=== PATIENT | female | born 1935 | race Caucasian/White ===

== ENCOUNTER 2016-04-15 11:59 | Emergency (ER) | payer OTHER ==
[~2016-04-15] VITALS: Ht 152.4 cm; Wt 49.0 kg
[2016-04-15 12:08] VITALS: PULSE 60; RESP 20; TEMP 97; O2SAT 97
[2016-04-15] MEDS ORDERED: NACL 0.9% 1,000 ML IV ONE (12:22)
[2016-04-15] MEDS ORDERED: ONDANSETRON HCL 4 MG/2 ML VIAL IVP ONE (12:30)
[2016-04-15] MEDS ORDERED: DEXAMETHASONE SOD PHOSPHATE 10 MG/ML VIAL IVP ONE (12:30)
[2016-04-15] MEDS ORDERED: PROCHLORPERAZINE EDISYLATE 10 MG/2 ML VIAL IVP ONE (12:30)
[2016-04-15] MEDS ORDERED: KETOROLAC TROMETHAMINE 30 MG VIAL IVP ONE (12:30)
--- NOTE | 2016-04-15 12:38 | NUR ---
# 20 gauge angiocath placed to RAC. Use of asceptic technique. Opsite placed over site. Blood return noted. Blood for lab drawn from site. Flushed with 10 cc of normal saline. No evidence of infiltration noted. Patient tolerated well.
[2016-04-15] MEDS ORDERED: hydrALAZINE HCL 20 MG/ML VIAL IVP ONE (12:45)
--- NOTE | 2016-04-15 12:45 | NUR ---
Dr Canales at bedside examining patient
[2016-04-15 13:04] LABS: ANION GAP 9 (5-15); CALCIUM 9.7 mg/dL (8.4-11.0); CHLORIDE 101 mmol/L (98-107); CREATININE 0.91 mg/dL (0.55-1.30); GLUCOSE 129 mg/dL (70-99); POTASSIUM 3.5 mmol/L (3.5-5.1); SODIUM SERUM 138 mmol/L (136-145); UREA NITROGEN, BLOOD 16 mg/dL (8-21)
--- NOTE | 2016-04-15 13:04 | NUR ---
report given to yelena NOLASCO
--- NOTE | 2016-04-15 13:05 | NUR ---
Pt brought by daughter, A&Ox4, pt c/o N/V and diarrhea since last night, denies chest pain , VS WNL, skin pink and warm, cap refill <3, pt ambulatory, respirations even and unlabored, denies bleeding.
[2016-04-15 13:06] LABS: BASOPHILS # (AUTO) 0.1 K/uL (0.0-0.2); BASOPHILS % (AUTO) 1.2 % (0.0-2.0); EOSINOPHILS % (AUTO) 0.1 % (0.0-4.0); HEMATOCRIT 39.3 % (36-48); HEMOGLOBIN 13.3 g/dL (12.0-16.0); LYMPHOCYTES # (AUTO) 1.2 K/uL (1.0-5.5); LYMPHOCYTES % (AUTO) 13.9 % (20.5-51.5); MEAN CORPUSCULAR HEMOGLOBIN 31 pg (27-31); MEAN CORPUSCULAR HGB CONC 34 % (32-36); MEAN CORPUSCULAR VOLUME 92 fL (79.0-98.0); MONOCYTES # (AUTO) 0.3 K/uL (0.0-1.0); MONOCYTES % (AUTO) 3.3 % (1.7-9.3); NEUTROPHILS # (AUTO) 7.2 K/uL (1.8-7.7); NEUTROPHILS % (AUTO) 81.5 % (40.0-70.0); PLATELET COUNT (AUTO) 296 K/uL (130-430); RED BLOOD CELL COUNT(AUTO) 4.27 MIL/uL (4.2-6.2); RED CELL DISTRIBUTION WIDTH 13.2 % (9.0-15.0); WHITE BLOOD COUNT (AUTO) 8.8 K/uL (4.8-10.8)
[2016-04-15 13:09] LABS: ALANINE AMINOTRANSFERASE 60 U/L (12-78); ALBUMIN 4.3 g/dL (3.4-4.8); AMYLASE 43 U/L (0-100); ASPARTATE AMINOTRANSFERASE 40 U/L (10-37); LIPASE 130 U/L (73-393); TOTAL BILIRUBIN 0.7 mg/dL (0.0-1.0); TOTAL PROTEIN, SERUM 7.9 g/dL (6.4-8.3)
--- NOTE | 2016-04-15 14:19 | NUR ---
Pt on stable condition, states she feels better at this time, respirations even and unlabored, no vomiting noted at this time.
[2016-04-15 14:32] LABS: BILIRUBIN,URINE NEGATIVE (NEGATIVE); CLARITY/URINE HAZY (CLEAR); COLOR,URINE YELLOW (YELLOW); GLUCOSE,URINE NEGATIVE (NEGATIVE); KETONES,URINE 1+ (NEGATIVE); LEUKOCYTE ESTERASE ,URINE NEGATIVE (NEGATIVE); NITRITE, URINE NEGATIVE (NEGATIVE); PROTEIN URINE 2+ (NEGATIVE); UROBILINOGEN,URINE 0.2 (0.2-1.0)
[2016-04-15 14:38] LABS: BLOOD, URINE TRACE (NEGATIVE)
[2016-04-15] MEDS ORDERED: TOPXL100 PO (14:58)
[2016-04-15] MEDS ORDERED: DONE5TAB33 PO (14:58)
[2016-04-15] MEDS ORDERED: ATOR10TA68 PO (14:58)
[2016-04-15] MEDS ORDERED: LOSA1TAB9 PO (14:58)
[2016-04-15] MEDS ORDERED: CALC-226 PO (14:58)
[2016-04-15 14:59] LABS: BACTERIA,URINE FEW /HPF (None Seen); COARSE GRANULAR CASTS,URINE 0-1 /LPF (None Seen); FINE GRANULAR CASTS,URINE 0-2 /LPF (None Seen); URINE AMORPHOUS URATE 2+ /HPF (None Seen); WBC,URINE 0-3 /HPF (0-3)
[2016-04-15 15:00] LABS: MUCUS,URINE 2+ /LPF (None Seen)
--- NOTE | 2016-04-15 15:56 | NUR ---
Patient given written and verbal discharge instructions and verbalizes understanding. ER MD discussed with patient the results and treatment provided. Given copies of tests performed in ER. Patient in stable condition. ID arm band removed. IV catheter removed intact and dressing applied, no active bleeding. Rx of Zofran given. Patient educated on pain management and to follow up with PMD. Pain Scale 0/10 . Opportunity for questions provided and answered.
[2016-04-15 15:57] VITALS: BP 142/67; PULSE 73; RESP 20; TEMP 97; O2SAT 98
== END 2016-04-15 15:56 | disposition home or self-care (01) ==
LOC: SED 11:59
DX: K52.9 Noninfective gastroenteritis and colitis, unspecified (principal); R03.0 Elevated blood-pressure reading, without diagnosis of hypertension; F41.9 Anxiety disorder, unspecified; E78.00 Pure hypercholesterolemia, unspecified
CPT/HCPCS: 36415; 74176; 80053; 81000; 82150; 83690; 85025; 96361; 96374; 96375; 99285; J0360; J0780; J1100; J1885; J2405; J7030

== ENCOUNTER 2019-09-09 20:37 | Emergency (ER) | payer OTHER ==
[~2019-09-09] VITALS: Ht 121.9 cm; Wt 47.2 kg
[2019-09-09 20:37] VITALS: BP_SYST 142
[~2019-09-09 20:37] MED LIST: ATOR10TA68 PO; CALC-823 PO; DONE5TAB33 PO; LOSA1TAB9 PO; TOPXL100 PO
--- NOTE | 2019-09-09 23:40 | NUR ---
ER at bedside examining patient.
--- NOTE | 2019-09-09 23:40 | NUR ---
Patient to ER bed 02 to gown for evaluation. Side rails up. Report given to CONSTANCE Jimenez.
[2019-09-10] MEDS ORDERED: DIPH-TET-PERTUS Vaccine 0.5 ML VIAL (ADACEL) I.M. ONE
[2019-09-10] MEDS ORDERED: LIDOCAINE 1%, 20 ML MDV 20 ML ONE (00:05)
--- NOTE | 2019-09-10 00:12 | NUR ---
DR. BRITTON AT BEDSIDE SUTURING PT. PT IS ALERT AND ORIENTED. ABLE TO COMMUNICATE NEEDS. RIGHT ARM LACERATION BLEEDING CONTROLLED.
--- NOTE | 2019-09-10 00:37 | NUR ---
PT IN [place] AND DENIES SEVERE PAIN. MEDICATED WITH TDAP VACCINE, INFORMATION SHEET GIVEN.
[2019-09-10] MEDS ORDERED: BACITRACIN ZINC 15 GM TOPICAL OINTMENT TP ONE (01:15)
[2019-09-10] MEDS ORDERED: cefTRIAXone 1 GM in LIDOCAINE 1%, 20 ML MDV 2.1 ML IM ONE (01:15)
[2019-09-10] MEDS ORDERED: BACITRACIN 1 GM OINT TP ONE (01:45)
--- NOTE | 2019-09-10 01:55 | NUR ---
WOUND DRESSING AFTER BACITRACIN APPLIED.
--- NOTE | 2019-09-10 02:48 | NUR ---
Patient given written and verbal discharge instructions and verbalizes understanding. ER MD discussed with patient the results and treatment provided. Patient in stable condition. ID arm band DC'D Rx of KEFLEX given. Patient educated on pain management and to follow up with PMD. Pain Scale 0/10. Opportunity for questions provided and answered. Medication side effect fact sheet provided.
[2019-09-10 02:52] VITALS: BP_SYST 142
== END 2019-09-10 02:48 | disposition home or self-care (01) ==
LOC: SED 20:37
DX: S51.811A Laceration without foreign body of right forearm, initial encounter (principal); F41.9 Anxiety disorder, unspecified; E78.00 Pure hypercholesterolemia, unspecified; Z79.899 Other long term (current) drug therapy; W18.49XA Other slipping, tripping and stumbling without falling, initial encounter; Y93.89 Activity, other specified; Y92.096 Garden or yard of other non-institutional residence as the place of occurrence of the external cause; Y99.8 Other external cause status
CPT/HCPCS: 12004; 73090; 90471; 90715; 96372; 99284; J0696; J2001

== ENCOUNTER 2022-08-23 21:08 | Emergency (ER) | payer OTHER ==
[~2022-08-23] VITALS: Ht 154.9 cm; Wt 54.4 kg
[2022-08-23 21:08] VITALS: BP_SYST 116
[~2022-08-23 21:08] MED LIST changes: +PRO40 PO; +SER25 PO
--- NOTE | 2022-08-23 21:08 | NUR ---
Patient triaged and placed back to the [facility]. Vital signs updated, denied any acute distress at this time. Instructed to notify ED staff for any changes in condition or worsening of symptoms. Patient verbalized understanding.
--- NOTE | 2022-08-23 21:48 | NUR ---
Placed in room 03. Placed on monitoring tech, blood pressure machine and pulse oximeter. To gown for exam. Side rails up. Report given to CONSTANCE STOKES
--- NOTE | 2022-08-23 22:08 | NUR ---
FIRST CONTACT WITH PT. ASSESSMENT COMPLETED. MD ALSO AT BEDSIDE FOR EVALUATION AND ORDERS.
--- NOTE | 2022-08-23 22:16 | NUR ---
ER Dr. CHAVARRIA at bedside examining patient.
[2022-08-23 22:51] LABS: BASOPHILS # (AUTO) 0.1 K/uL (0.0-0.2); BASOPHILS % (AUTO) 0.5 % (0.0-2.0); EOSINOPHILS # (AUTO) 0.2 K/uL (0.0-0.4); EOSINOPHILS % (AUTO) 1.2 % (0.0-4.0); HEMATOCRIT 29.8 % (36-48); HEMOGLOBIN 9.9 g/dL (12.0-16.0); LYMPHOCYTES # (AUTO) 2.4 K/uL (1.0-5.5); LYMPHOCYTES % (AUTO) 17.9 % (20.5-51.5); MEAN CORPUSCULAR HEMOGLOBIN 31 pg (27-31); MEAN CORPUSCULAR HGB CONC 33 % (32-36); MEAN CORPUSCULAR VOLUME 94 fL (79.0-98.0); MONOCYTES # (AUTO) 1.1 K/uL (0.0-1.0); MONOCYTES % (AUTO) 8.5 % (1.7-9.3); NEUTROPHILS # (AUTO) 9.7 K/uL (1.8-7.7); NEUTROPHILS % (AUTO) 71.9 % (40.0-70.0); PLATELET COUNT (AUTO) 298 K/uL (130-430); RED BLOOD CELL COUNT(AUTO) 3.18 MIL/uL (4.2-6.2); RED CELL DISTRIBUTION WIDTH 14.2 % (9.0-15.0); WHITE BLOOD COUNT (AUTO) 13.5 K/uL (4.8-10.8)
[2022-08-23 23:12] LABS: ANION GAP 7 (5-15); CALCIUM 8.6 mg/dL (8.4-11.0); CHLORIDE 100 mmol/L (98-107); CREATININE 1.65 mg/dL (0.55-1.30); GLUCOSE 115 mg/dL (70-99); UREA NITROGEN, BLOOD 35 mg/dL (8-21)
[2022-08-23 23:19] LABS: ALANINE AMINOTRANSFERASE 16 U/L (12-78); ALBUMIN 3.3 g/dL (3.4-4.8); ASPARTATE AMINOTRANSFERASE 15 U/L (10-37); TOTAL BILIRUBIN 0.2 mg/dL (0.0-1.0)
--- NOTE | 2022-08-24 00:05 | NUR ---
PT RESTING QUIETLY WITH NO SIGNS OF DISTRESS.
--- NOTE | 2022-08-24 02:00 | NUR ---
PT ASLEEP. NO SIGNS OF DISTRESS.
--- NOTE | 2022-08-24 04:10 | NUR ---
REPORT CALLED TO CONSTANCE GONCALVES AT FACILITY. EMT ALSO AT BEDSIDE FOR REPORT.
[2022-08-24 04:29] VITALS: BP_SYST 112
--- NOTE | 2022-08-24 04:35 | NUR ---
Patient given written and verbal discharge instructions and verbalizes understanding. ER MD CHAVARRIA discussed with patient the results and treatment provided. Patient in stable condition. ID arm band removed. IV catheter removed intact and dressing applied, no active bleeding. Rx of NONE given. Patient educated on pain management and to follow up with PMD. Pain Scale . Opportunity for questions provided and answered. Medication side effect fact sheet provided.
== END 2022-08-24 04:29 | disposition home or self-care (01) ==
LOC: SED 21:08
DX: S09.90XA Unspecified injury of head, initial encounter (principal); E78.00 Pure hypercholesterolemia, unspecified; Z79.899 Other long term (current) drug therapy; W19.XXXA Unspecified fall, initial encounter; Y93.89 Activity, other specified; Y92.89 Other specified places as the place of occurrence of the external cause; Y99.8 Other external cause status
CPT/HCPCS: 36415; 70450-TC; 72125-TC; 76376; 80053; 84484; 85025; 93005; 99284

== ENCOUNTER 2022-09-17 20:02 | Emergency (ER) | payer OTHER ==
[~2022-09-17] VITALS: Ht 160 cm; Wt 54.4 kg
[2022-09-17 20:09] VITALS: BP_SYST 108; PULSE 58; RESP 19; TEMP 98.9; O2SAT 97
[2022-09-17] MEDS ORDERED: NACL 0.9% 1,000 ML IV ONE (20:15)
[2022-09-17 20:47] LABS: BASOPHILS # (AUTO) 0.1 K/uL (0.0-0.2); BASOPHILS % (AUTO) 0.7 % (0.0-2.0); EOSINOPHILS # (AUTO) 0.1 K/uL (0.0-0.4); EOSINOPHILS % (AUTO) 1.2 % (0.0-4.0); HEMATOCRIT 25.6 % (36-48); HEMOGLOBIN 8.3 g/dL (12.0-16.0); LYMPHOCYTES # (AUTO) 2.2 K/uL (1.0-5.5); LYMPHOCYTES % (AUTO) 26.8 % (20.5-51.5); MEAN CORPUSCULAR HEMOGLOBIN 30 pg (27-31); MEAN CORPUSCULAR HGB CONC 32 % (32-36); MEAN CORPUSCULAR VOLUME 94 fL (79.0-98.0); MONOCYTES # (AUTO) 0.8 K/uL (0.0-1.0); MONOCYTES % (AUTO) 10.2 % (1.7-9.3); NEUTROPHILS # (AUTO) 4.9 K/uL (1.8-7.7); NEUTROPHILS % (AUTO) 61.1 % (40.0-70.0); PLATELET COUNT (AUTO) 269 K/uL (130-430); RED BLOOD CELL COUNT(AUTO) 2.72 MIL/uL (4.2-6.2)
[2022-09-17 20:55] LABS: ALANINE AMINOTRANSFERASE 22 U/L (12-78); ALBUMIN 3.2 g/dL (3.4-4.8); ANION GAP 8 (5-15); ASPARTATE AMINOTRANSFERASE 24 U/L (10-37); CALCIUM 8.2 mg/dL (8.4-11.0); CHLORIDE 105 mmol/L (98-107); GLUCOSE 122 mg/dL (74-106); TOTAL BILIRUBIN 0.2 mg/dL (0.0-1.0); UREA NITROGEN, BLOOD 27 mg/dL (8-21)
--- NOTE | 2022-09-17 21:30 | NUR ---
PATIENT PLACED IN ED BED 2 AT THIS TIME
--- NOTE | 2022-09-17 22:10 | NUR ---
URINE COLLECTED VIA STRAIGHT CATH AND SENT TO LAB, PERINEAL AREA REDNESS NOTED DUE TO FECES SITTING ON SKIN, AREA CLEANSED AND NEW BRIEF APPLIED
[2022-09-17 22:49] LABS: BILIRUBIN,URINE NEGATIVE (NEGATIVE); BLOOD, URINE NEGATIVE (NEGATIVE); CLARITY/URINE CLEAR (CLEAR); COLOR,URINE YELLOW (YELLOW); GLUCOSE,URINE NEGATIVE (NEGATIVE); KETONES,URINE TRACE (NEGATIVE); LEUKOCYTE ESTERASE ,URINE NEGATIVE (NEGATIVE); NITRITE, URINE NEGATIVE (NEGATIVE); PH,URINE 5.5 (5.0-8.0); PROTEIN URINE NEGATIVE (NEGATIVE); UROBILINOGEN,URINE 0.2 (0.2-1.0)
[2022-09-17 23:16] LABS: BACTERIA,URINE FEW /HPF (None Seen); FINE GRANULAR CASTS,URINE 0-10 /LPF (None Seen); HYALINE CASTS, URINE 0-10 /LPF (None Seen); MUCUS,URINE 2+ /LPF (None Seen); RBC,URINE NONE SEEN /HPF (0-3); WBC,URINE 0-3 /HPF (0-3)
--- NOTE | 2022-09-17 23:56 | NUR ---
DAUGHTER LEVY CONTACT INFO [phone]
--- NOTE | 2022-09-18 07:20 | NUR ---
RECEIVE PT FROM CONSTANCE SANDS. ASSUMED CARE. DIET ORDERED.
--- NOTE | 2022-09-18 07:20 | NUR ---
RECEIVE PT FROM CONSTANCE SANDS. ASSUMED CARE. DIET ORDERED.
[2022-09-18 08:38] VITALS: BP_SYST 123; PULSE 72; RESP 16; TEMP 97.8; O2SAT 95
== END 2022-09-18 08:40 | disposition home or self-care (01) ==
LOC: SED 20:02
DX: R55 Syncope and collapse (principal); D64.9 Anemia, unspecified; R56.9 Unspecified convulsions; I10 Essential (primary) hypertension; E78.00 Pure hypercholesterolemia, unspecified; Z79.899 Other long term (current) drug therapy
CPT/HCPCS: 99285; 96360; 70450; 71045; 80053; 85025; 84484; 36415; 93005; 76376; 81003; 81000; J7030

== ENCOUNTER 2023-02-11 06:42 | Emergency (ER) | payer OTHER ==
[~2023-02-11] VITALS: Ht 162.6 cm; Wt 61.2 kg
[2023-02-11 06:49] VITALS: BP_SYST 143; PULSE 55; RESP 16; TEMP 97.1; O2SAT 96
[2023-02-11 07:52] LABS: BASOPHILS # (AUTO) 0.1 K/uL (0.0-0.2); BASOPHILS % (AUTO) 0.6 % (0.0-2.0); EOSINOPHILS # (AUTO) 0.1 K/uL (0.0-0.4); EOSINOPHILS % (AUTO) 0.9 % (0.0-4.0); HEMATOCRIT 35.1 % (36-48); HEMOGLOBIN 11.3 g/dL (12.0-16.0); LYMPHOCYTES # (AUTO) 1.9 K/uL (1.0-5.5); LYMPHOCYTES % (AUTO) 19.4 % (20.5-51.5); MEAN CORPUSCULAR HEMOGLOBIN 31 pg (27-31); MEAN CORPUSCULAR HGB CONC 32 % (32-36); MEAN CORPUSCULAR VOLUME 95 fL (79.0-98.0); MONOCYTES # (AUTO) 0.8 K/uL (0.0-1.0); MONOCYTES % (AUTO) 7.9 % (1.7-9.3); NEUTROPHILS # (AUTO) 6.9 K/uL (1.8-7.7); NEUTROPHILS % (AUTO) 71.2 % (40.0-70.0); PLATELET COUNT (AUTO) 296 K/uL (130-430); RED BLOOD CELL COUNT(AUTO) 3.69 MIL/uL (4.2-6.2); RED CELL DISTRIBUTION WIDTH 15.1 % (9.0-15.0); WHITE BLOOD COUNT (AUTO) 9.6 K/uL (4.8-10.8)
[2023-02-11 08:04] LABS: PROTHROMBIN TIME 9.9 SECS (9.5-12.5)
[2023-02-11 08:29] LABS: ANION GAP 9 (5-15); CALCIUM 9.7 mg/dL (8.4-11.0); CARBON DIOXIDE 29 mmol/L (23-29); CHLORIDE 103 mmol/L (98-107); CREATININE 1.23 mg/dL (0.55-1.30); GLUCOSE 99 mg/dL (74-106); SODIUM SERUM 141 mmol/L (136-145); UREA NITROGEN, BLOOD 32 mg/dL (8-21)
[2023-02-11] MEDS ORDERED: BACITRACIN 1 GM OINT TP ONE (08:30)
[2023-02-11] MEDS ORDERED: DIPHTH,PERTUSS(ACELL),TET VAC 0.5 ML VIAL (Tdap) I.M. ONE (08:30)
[2023-02-11 09:30] VITALS: BP_SYST 159; PULSE 59; RESP 17; TEMP 97.3; O2SAT 95
== END 2023-02-11 09:17 | disposition home or self-care (01) ==
LOC: SED 06:42
DX: S01.01XA Laceration without foreign body of scalp, initial encounter (principal); S09.90XA Unspecified injury of head, initial encounter; I10 Essential (primary) hypertension; Z79.899 Other long term (current) drug therapy; W18.39XA Other fall on same level, initial encounter; Y93.89 Activity, other specified; Y92.89 Other specified places as the place of occurrence of the external cause; Y99.8 Other external cause status
CPT/HCPCS: 36415; 70450-TC; 76376; 80048; 82962; 84484; 85025; 85610-TC; 90715; 93005; 99285